=== PATIENT | female | born 1975 | race Caucasian/White ===

== ENCOUNTER 2016-11-08 16:14 | Emergency (ER) | payer OTHER ==
[2016-11-08 16:22] VITALS: TEMP 98.1; BMI 22.2
[2016-11-08] MEDS ORDERED: LORAZEPAM CARPU-JECT 2 MG/ML DISP.SYRIN IVPUSH ONE (16:41)
--- NOTE | 2016-11-08 16:41 | PDOC ---
*Physical Exam - Vital Signs Last Vital Signs Temp Pulse Resp BP Pulse Ox 98.1 F 135 H 18 131/57 100 11/08/16 16:18 11/08/16 16:18 11/08/16 16:18 11/08/16 16:18 11/08/16 16:18 Heart Score/ECG Review #1 ECG reviewed & interpreted by me at: 16:25 11/08/16 16:40 NSR 131, no std/yee, normal axis, normal intervals, TW flat V3, QTC 472 msec ED Treatment Course - LABORATORY CBC & Chemistry Diagram: 11/08/16 16:55 11/08/16 16:55 Medical Decision Making - Medical Decision Making 11/08/16 16:41 Pt seen by the Advanced Practice Provider under my direct supervision Ancillary studies reviewed I agree with plan as outlined by the Advanced Practice Provider OMAIRA Hamilton *DC/Admit/Observation/Transfer Diagnosis at time of Disposition: Anxiety - Discharge Dispostion Disposition: HOME Condition at time of disposition: Improved - Referrals Referrals: Nehemias Drew MD [Primary Care Provider] - - Patient Instructions Additional Instructions: Return for worsening of symptoms
[2016-11-08] MEDS ORDERED: SODIUM CHLORIDE 1,000 ML IV STA (16:42)
[2016-11-08] MEDS ORDERED: LORAZEPAM CARPU-JECT 2 MG/ML DISP.SYRIN ONE (16:48)
[2016-11-08 17:16] LABS: BASOPHIL 1.3 % (0-2.0); MCH 20.8 pg (25.7-33.7); MCHC 30.6 g/dl (32.0-36.0); MEAN CELL VOLUME 67.9 fl (80-96); MEAN PLT VOLUME 7.7 fl (7.5-11.1); NEUTROPHILS 74.2 % (42.8-82.8); PLATELET COUNT 473 K/MM3 (134-434); RDW 17.4 % (11.6-15.6); WHITE BLOOD COUNT 8.1 K/mm3 (4.0-10.0)
--- NOTE | 2016-11-08 18:00 | PDOC ---
History of Present Illness - General Chief Complaint: Palpitations Stated Complaint: HR 135 PALPITATIONS/LIGHTHEADED Time Seen by Provider: 11/08/16 16:31 History Source: Patient - History of Present Illness Associated Symptoms: denies: chest pain, diaphoresis, fever/chills, headaches, nausea/vomiting, shortness of breath, syncope, weakness Past History - Past Medical History Allergies/Adverse Reactions: Allergies Allergy/AdvReac Type Severity Reaction Status Date / Time No Known Allergies Allergy Verified 11/08/16 16:17 Other medical history: NONE - Psycho/Social/Smoking Cessation Hx Anxiety: No Suicidal Ideation: No Smoking History: Never smoked Have you smoked in the past 12 months: No Information on smoking cessation initiated: No Hx Alcohol Use: No Drug/Substance Use Hx: No Substance Use Type: None Review of Systems - Review of Systems Respiratory: No: Shortness of Breath Cardiac (ROS): Yes: Palpitations. No: Chest Pain ABD/GI: No: Nausea, Vomiting *Physical Exam - Vital Signs Last Vital Signs Temp Pulse Resp BP Pulse Ox 98.1 F 135 H 18 131/57 100 11/08/16 16:18 11/08/16 16:18 11/08/16 16:18 11/08/16 16:18 11/08/16 16:18 - Physical Exam Comments: 11/08/16 18:01 anxious appearing General Appearance: Yes: Appropriately Dressed HEENT: positive: Normal Voice Neck: positive: Supple Respiratory/Chest: positive: Lungs Clear, Normal Breath Sounds. negative: Respiratory Distress Cardiovascular: positive: S1, S2, Tachycardia Gastrointestinal/Abdominal: positive: Soft. negative: Tender Integumentary: positive: Dry, Warm Neurologic: positive: Fully Oriented, Alert, Normal Mood/Affect ED Treatment Course - LABORATORY CBC & Chemistry Diagram: 11/08/16 16:55 11/08/16 16:55 - ADDITIONAL ORDERS Additional order review: 11/08/16 16:55 RBC 4.91 MCV 67.9 L MCHC 30.6 L RDW 17.4 H MPV 7.7 Neutrophils % 74.2 Lymphocytes % 18.0 Monocytes % 6.5 Eosinophils % 0.0 Basophils % 1.3 - Medications Given in the ED: ED Medications Discontinued Medications Generic Name Dose Route Start Last Admin Trade Name Freq PRN Reason Stop Dose Admin Sodium Chloride 1,000 mls @ 1,000 mls/hr 11/08/16 16:42 11/08/16 16:58 Normal Saline - IV 11/08/16 17:41 1,000 mls/hr ASDIR STA Administration Lorazepam 1 mg 11/08/16 16:41 11/08/16 16:57 Ativan Injection - IVPUSH 11/08/16 16:42 1 mg ONCE ONE Administration Medical Decision Making - Medical Decision Making 11/08/16 17:49 41 yo F, ?psych hx (pt denies but has multiple psych encounters on records- unable to see documents in [email or web address]), here w/ anxiety and palpitations that started this am. Pt states she suffers from insomnia and instead of filling rx for ambien which she was given by her doctor, she ingested 3, 30cc caps of nyquil last night. Thinks meds is causing her symptoms. Adamently denies trying to hurt herself. States she made a mistake and took more than she was supposed to. Denies SI/HI in the past. see exam Anxiety/palpitations 2/2 reported accidental OD of nyquil last night Tachy to 135 in ED and appears anxious -ativan -IVF -labs -reassess 11/08/16 18:00 11/08/16 19:00 HR 104 on rpt. Patient reports feeling significantly better. Labs within normal limits. Stable for discharge at this time 11/08/16 19:01 *DC/Admit/Observation/Transfer Diagnosis at time of Disposition: Anxiety - Discharge Dispostion Disposition: HOME Condition at time of disposition: Improved - Referrals Referrals: Nehemias Drew MD [Primary Care Provider] - - Patient Instructions Additional Instructions: Return for worsening of symptoms
[2016-11-08 18:06] LABS: ALBUMIN 3.8 g/dl (3.4-5.0); ANION GAP 6 (8-16); BILIRUBIN,TOTAL 0.4 mg/dL (0.2-1.0); CALCIUM 8.2 mg/dL (8.5-10.1); CO2 25 mmol/L (21-32); CREATININE 1.1 mg/dL (0.55-1.02); GLUCOSE,RANDOM 95 mg/dL (74-106); SGOT/AST 8 U/L (15-37); SGPT/ALT 18 U/L (12-78); TOT PROT 7.4 g/dl (6.4-8.2)
[2016-11-08 18:09] LABS: ALK PHOS 50 U/L (45-117); TROPONIN I < 0.02 ng/ml (0.00-0.05)
[2016-11-08 19:01] LABS: HYPOCHROMIA 3+; PLATELET ESTIMATE INCREASED (NORMAL)
[2016-11-08 19:02] LABS: MICROCYTOSIS 1+
[2016-11-08 19:21] VITALS: BP 121/76; PULSE 102
--- NOTE | 2016-11-09 16:23 | EKG ---
Test Reason : Blood Pressure : / mmHG Vent. Rate : 131 BPM Atrial Rate : 131 BPM P-R Int : 126 ms QRS Dur : 062 ms QT Int : 320 ms P-R-T Axes : 055 056 028 degrees QTc Int : 472 ms SINUS TACHYCARDIA NONSPECIFIC ST ABNORMALITY ABNORMAL ECG WHEN COMPARED WITH ECG OF 18-DEC-1999 13:19, NO SIGNIFICANT CHANGE WAS FOUND Confirmed by DAVID FERNANDEZ MD ([id number]) on 11/09/2016 4:22:31 PM Referred By: Confirmed By:DAVID FERNANDEZ MD
== END 2016-11-08 19:21 | disposition home or self-care (01) ==
LOC: JER 16:14
PROC: 3E0337Z Introduction of Electrolytic and Water Balance Substance into Peripheral Vein, Percutaneous Approach (ICD-10-PCS; principal; 2016-11-08)
PROC: 3E033NZ Introduction of Analgesics, Hypnotics, Sedatives into Peripheral Vein, Percutaneous Approach (ICD-10-PCS; 2016-11-08)
DX: F41.9 Anxiety disorder, unspecified (principal)
CPT/HCPCS: 36415; 80053; 80307; 82009; 82550; 84443; 84484; 84703; 85025; 93005; 93010; 96361; 96374; 99284-25

== ENCOUNTER 2021-03-17 16:00 | Emergency (ER) | payer OTHER ==
[2021-03-17 16:30] VITALS: TEMP 98.7; BMI 27.8
[2021-03-17] MEDS ORDERED: LIDOCAINE 1%/EPI 1:100000 (20 ML MULTI DOSE VIAL) ONE (16:47)
[2021-03-17] MEDS ORDERED: CLINDAMYCIN HCL 300 MG CAPSULE PO ONE (17:07)
[2021-03-17] MEDS ORDERED: IBUPROFEN 400 MG TABLET (FP) PO ONE ×2 (17:07→17:12)
[2021-03-17] MEDS ORDERED: CLINDAMYCIN HCL 150 MG CAPSULE (FP) ONE (17:12)
[2021-03-17 17:19] VITALS: BP 130/87; PULSE 96
== END 2021-03-17 17:19 | disposition home or self-care (01) ==
LOC: JERFT 16:00 → JER 16:00 → JERFT 17:19
PROC: 0H98XZZ Drainage of Buttock Skin, External Approach (ICD-10-PCS; principal; 2021-03-17)
DX: L02.31 Cutaneous abscess of buttock (principal)
CPT/HCPCS: 87070; 87205; 99284-25

== ENCOUNTER 2021-03-20 15:14 | Emergency (ER) | payer OTHER ==
[2021-03-20 15:18] VITALS: BP 128/79; PULSE 101; TEMP 98.1; BMI 27.8
== END 2021-03-20 15:58 | disposition home or self-care (01) ==
LOC: JERFT 15:14
DX: Z48.00 Encounter for change or removal of nonsurgical wound dressing (principal)
CPT/HCPCS: 99281-25

== ENCOUNTER 2021-04-13 17:40 | Emergency (ER) | payer OTHER ==
[2021-04-13 17:47] VITALS: BP 113/73; PULSE 100; TEMP 98.2; BMI 27.2
== END 2021-04-13 20:57 | disposition home or self-care (01) ==
LOC: JERFT 17:40
DX: L02.31 Cutaneous abscess of buttock (principal)
CPT/HCPCS: 87070; 87076; 87186; 87205; 99282-25

== ENCOUNTER 2021-08-30 13:20 | Emergency (ER) | payer OTHER ==
[2021-08-30 13:40] VITALS: BP 141/94; PULSE 96; TEMP 97.9; BMI 26.2
== END 2021-08-30 15:15 | disposition home or self-care (01) ==
LOC: JER 13:20
DX: R05.1 Acute cough (principal); R09.81 Nasal congestion; J06.9 Acute upper respiratory infection, unspecified; Z11.52 Encounter for screening for COVID-19
CPT/HCPCS: 71046-TC-FY; 99284-25; C9803; U0003; U0005

== ENCOUNTER 2022-07-03 17:07 | Observation (INO) | payer OTHER ==
[2022-07-03] MEDS ORDERED: diazePAM CARPU-JECT 10 MG/2 ML DISP.SYRIN IVPUSH ONE ×3 (18:30→20:13)
[2022-07-03] MEDS ORDERED: THIAMINE HCL 200 MG/2 ML VIAL IVPB ONE (18:45)
[2022-07-03] MEDS ORDERED: SODIUM CHLORIDE 0.9% 500 ML INFUS.BAG IV ONE (18:45)
[2022-07-03] MEDS ORDERED: diazePAM CARPU-JECT 10 MG/2 ML DISP.SYRIN ONE ×3 (18:58→20:21)
[2022-07-03 19:10] LABS: BASO % 1.3 % (0-2.0); EOS % 0.1 % (0-4.5); HEMATOCRIT 41.9 % (32.4-45.2); HEMOGLOBIN 14.3 GM/dL (10.7-15.3); LYMPH % 12.5 % (8-40); MCH 27.1 pg (25.7-33.7); MCHC 34.1 g/dl (32.0-36.0); MEAN CELL VOLUME 79.5 fl (80-96); MEAN PLT VOLUME 7.7 fl (7.5-11.1); MONO % 6.2 % (3.8-10.2); NEUT % 79.9 % (42.8-82.8); PLATELET COUNT 558 10^3/uL (134-434); RBC 5.27 M/mm3 (3.60-5.2); RDW 17.1 % (11.6-15.6); WHITE BLOOD COUNT 15.5 K/mm3 (4.0-10.0)
[2022-07-03] MEDS ORDERED: THIAMINE HCL 200 MG/2 ML VIAL ONE (19:21)
[2022-07-03 19:36] LABS: CALCIUM 10.7 mg/dL (8.5-10.1)
[2022-07-03 19:37] LABS: BLOOD UREA NITROGEN 4.2 mg/dL (7-18); MAGNESIUM 1.4 mg/dL (1.8-2.4)
[2022-07-03 19:42] LABS: BILIRUBIN,TOTAL 0.9 mg/dL (0.2-1)
[2022-07-03 20:44] LABS: EPI CELLS 14 /uL (0-25.1); HYALINE CASTS 1 /uL (0-3.1); PH,URINE 6.5 (5.0-8.0); URINE APPEARANCE CLEAR; URINE BACTERIA 239 /uL (0-1359); URINE BILIRUBIN NEGATIVE (NEGATIVE); URINE COLOR YELLOW; URINE GLUCOSE (UA) NEGATIVE (NEGATIVE); URINE KETONE NEGATIVE (NEGATIVE); URINE LEUK ESTERASE TRACE (NEGATIVE); URINE NITRITE NEGATIVE (NEGATIVE); URINE PROTEIN NEGATIVE (NEGATIVE); URINE RBC 28 /uL (0-23.9); URINE UROBILINOGEN 0.2 mg/dL (0.2-1.0); URINE WBC 13 /uL (0-25.8)
[2022-07-03 22:45] VITALS: BMI 27.8
[2022-07-03] MEDS ORDERED: LORazepam 2 MG/ML SDV VIAL IVPB PRN (23:41)
[2022-07-04] MEDS: DEXTROSE 5%-0.45% SALINE 1,000 ML IV SCH ×2 (00:22→17:08)
[2022-07-04] MEDS ORDERED: MELATONIN 1 MG TABLET PO ONE (03:11)
[2022-07-04 06:58] LABS: BASO % 0.9 % (0-2.0); EOS % 1.1 % (0-4.5); MCH 26.8 pg (25.7-33.7); MCHC 33.3 g/dl (32.0-36.0); MEAN CELL VOLUME 80.5 fl (80-96); MEAN PLT VOLUME 8.1 fl (7.5-11.1); MONO % 9.2 % (3.8-10.2); NEUT % 62.8 % (42.8-82.8); PLATELET COUNT 427 10^3/uL (134-434); RBC 4.85 M/mm3 (3.60-5.2); RDW 17.2 % (11.6-15.6); WHITE BLOOD COUNT 8.2 K/mm3 (4.0-10.0)
[2022-07-04 07:16] LABS: CHLORIDE 104 mmol/L (98-107); SODIUM 140 mmol/L (136-145)
[2022-07-04 07:23] LABS: ANION GAP 8 MMOL/L (8-16); CO2 27 mmol/L (21-32); GLUCOSE,RANDOM 101 mg/dL (74-106)
[2022-07-04 07:26] LABS: CREATININE 0.8 mg/dL (0.55-1.3); SGOT/AST 33 U/L (15-37); SGPT/ALT 33 U/L (13-61)
[2022-07-04 07:28] LABS: BILIRUBIN,TOTAL 0.9 mg/dL (0.2-1)
[2022-07-04 08:30] LABS: ALK PHOS 95 U/L (45-117); BLOOD UREA NITROGEN 2.7 mg/dL (7-18); CALCIUM 8.9 mg/dL (8.5-10.1); TOT PROT 6.9 g/dl (6.4-8.2)
[2022-07-04] MEDS ORDERED: ONDANSETRON 4 MG/2 ML VIAL IVPUSH ONE (09:00)
[2022-07-04] MEDS ORDERED: ONDANSETRON 4 MG/2 ML VIAL ONE (09:19)
[2022-07-04] MEDS: PANTOPRAZOLE 40 MG TABLET PO SCH (10:00)
[2022-07-04] MEDS: FOLIC ACID 1 MG TABLET (FP) PO SCH (10:00)
[2022-07-04] MEDS: THIAMINE HCL 100 MG TABLET (FP) PO SCH (10:00)
[2022-07-04] MEDS: HEPARIN NA (PORCINE) 5,000 UNITS/ML 1ML VIAL SQ SCH ×2 (10:00→22:06)
[2022-07-04] MEDS ORDERED: chlordiazePOXIDE HCL 25 MG CAPSULE PO PRN (10:41)
[2022-07-04] MEDS ORDERED: LOPERAMIDE HCL 2 MG CAPSULE PO PRN (10:41)
[2022-07-04] MEDS ORDERED: DICYCLOMINE HCL 10 MG CAPSULE PO PRN (10:41)
[2022-07-04] MEDS ORDERED: ONDANSETRON *ODT* 4 MG TABLET SL PRN (10:41)
[2022-07-04] MEDS ORDERED: BENZOCAINE/MENTHOL (CHLORASEPTIC ) LOZENGE MM PRN (10:41)
[2022-07-04] MEDS ORDERED: METHOCARBAMOL 500 MG TABLET PO PRN (10:41)
[2022-07-04] MEDS ORDERED: MAGNESIUM CITRATE 300 ML BOTTLE PO PRN (10:41)
[2022-07-04] MEDS ORDERED: IBUPROFEN 400 MG TABLET (FP) PO PRN (10:41)
[2022-07-04] MEDS ORDERED: MAGNESIUM HYDROX 2400MG/30ML ORAL SUSPENSION 30 ML CUP PO PRN (10:41)
[2022-07-04] MEDS ORDERED: BISMUTH SUBSALICYLATE 524 MG/30 ML PO PRN (10:41)
[2022-07-04 10:56] LABS: MAGNESIUM 1.5 mg/dL (1.8-2.4)
[2022-07-04] MEDS ORDERED: MAGNESIUM SULFATE IN WATER 4 GM/50 ML BAG IVPB ONE ×2 (11:00→12:00)
[2022-07-04] MEDS: chlordiazePOXIDE HCL 25 MG CAPSULE PO SCH ×3 (11:28→22:06)
[2022-07-04] MEDS ORDERED: POTASSIUM CHLORIDE TABS 20 MEQ TABLET.ER (FP) PO ONE (11:30)
[2022-07-04] MEDS: MAG HYDROX/AL HYDROX/SIMETH 30 ML UNIT-DOSE CUP PO PRN (11:32)
[2022-07-04 11:57] LABS: CHOLESTEROL 160 mg/dL (50-200)
[2022-07-04 11:58] LABS: LDL CHOLESTEROL (ONLY SJRH) 82 mg/dL (5-100)
[2022-07-04 11:59] LABS: TRIGLYCERIDES 202 mg/dL (0-150)
[2022-07-04 12:02] LABS: HDL CHOLESTEROL 59 mg/dL (40-60)
[2022-07-04] MEDS: hydrOXYzine PAMOATE 25 MG CAPSULE (FP) PO SCH ×3 (14:00→23:27)
[2022-07-04 15:42] LABS: COCAINE, UR NEGATIVE (NEGATIVE); OPIATES, URI NEGATIVE (NEGATIVE)
[2022-07-04 15:43] LABS: URINE BARBITURATES NEGATIVE (NEGATIVE)
[2022-07-04 15:48] LABS: PHENCYCLIDINE,URINE NEGATIVE (NEGATIVE)
[2022-07-04 15:49] LABS: METHADONE, UR NEGATIVE (NEGATIVE)
[2022-07-04 15:50] LABS: URINE AMPHETAMINES NEGATIVE (NEGATIVE); URINE BENZODIAZEPINES POSITIVE (NEGATIVE)
[2022-07-04] MEDS: PRENATAL VITAMINS W/ FOLIC ACID TABLET (FP) PO SCH (18:07)
[2022-07-04] MEDS: MELATONIN 5 MG TABLETS PO SCH (22:06)
[2022-07-05] MEDS: DEXTROSE 5%-0.45% SALINE 1,000 ML IV SCH ×2 (00:45→06:43)
[2022-07-05] MEDS: chlordiazePOXIDE HCL 25 MG CAPSULE PO SCH ×4 (05:55→22:03)
[2022-07-05] MEDS: hydrOXYzine PAMOATE 25 MG CAPSULE (FP) PO SCH ×5 (06:33→22:03)
[2022-07-05 07:12] LABS: HEMATOCRIT 38.5 % (32.4-45.2); HEMOGLOBIN 12.5 GM/dL (10.7-15.3); MCH 26.6 pg (25.7-33.7); MCHC 32.6 g/dl (32.0-36.0); MEAN CELL VOLUME 81.5 fl (80-96); MEAN PLT VOLUME 8.5 fl (7.5-11.1); PLATELET COUNT 331 10^3/uL (134-434); RBC 4.72 M/mm3 (3.60-5.2); RDW 16.9 % (11.6-15.6); WHITE BLOOD COUNT 6.8 K/mm3 (4.0-10.0)
[2022-07-05 07:29] LABS: CALCIUM 8.1 mg/dL (8.5-10.1)
[2022-07-05 07:30] LABS: ALBUMIN 2.6 g/dl (3.4-5.0); BLOOD UREA NITROGEN 8.6 mg/dL (7-18)
[2022-07-05 07:33] LABS: CREATININE 0.8 mg/dL (0.55-1.3)
[2022-07-05 07:34] LABS: BILIRUBIN,TOTAL 0.4 mg/dL (0.2-1); TOT PROT 6.2 g/dl (6.4-8.2)
[2022-07-05] MEDS: PRENATAL VITAMINS W/ FOLIC ACID TABLET (FP) PO SCH (10:22)
[2022-07-05] MEDS: FOLIC ACID 1 MG TABLET (FP) PO SCH (10:22)
[2022-07-05] MEDS: HEPARIN NA (PORCINE) 5,000 UNITS/ML 1ML VIAL SQ SCH ×2 (10:22→22:01)
[2022-07-05] MEDS: THIAMINE HCL 100 MG TABLET (FP) PO SCH (10:23)
[2022-07-05] MEDS: PANTOPRAZOLE 40 MG TABLET PO SCH (10:23)
[2022-07-05] MEDS ORDERED: ACETAMINOPHEN INJECTION 100 ML IVPB ONE (11:47)
[2022-07-05] MEDS: MELATONIN 5 MG TABLETS PO SCH (22:02)
[2022-07-06] MEDS: DEXTROSE 5%-0.45% SALINE 1,000 ML IV SCH ×2 (00:45→05:46)
[2022-07-06] MEDS: IBUPROFEN 600 MG TABLET (FP) PO PRN (03:12)
[2022-07-06] MEDS: chlordiazePOXIDE HCL 25 MG CAPSULE PO SCH ×4 (05:26→23:37)
[2022-07-06] MEDS: hydrOXYzine PAMOATE 25 MG CAPSULE (FP) PO SCH ×5 (05:26→21:25)
[2022-07-06] MEDS: MAG HYDROX/AL HYDROX/SIMETH 30 ML UNIT-DOSE CUP PO PRN (09:36)
[2022-07-06] MEDS: PANTOPRAZOLE 40 MG TABLET PO SCH (09:36)
[2022-07-06] MEDS: THIAMINE HCL 100 MG TABLET (FP) PO SCH (09:36)
[2022-07-06] MEDS: FOLIC ACID 1 MG TABLET (FP) PO SCH (09:37)
[2022-07-06] MEDS: HEPARIN NA (PORCINE) 5,000 UNITS/ML 1ML VIAL SQ SCH ×2 (09:37→21:25)
[2022-07-06] MEDS: PRENATAL VITAMINS W/ FOLIC ACID TABLET (FP) PO SCH (09:40)
[2022-07-06] MEDS: MELATONIN 5 MG TABLETS PO SCH (21:25)
[2022-07-07] MEDS ORDERED: chlordiazePOXIDE HCL 10 MG CAPSULE PO PRN
[2022-07-07] MEDS: chlordiazePOXIDE HCL 10 MG CAPSULE PO SCH ×4 (05:28→23:17)
[2022-07-07] MEDS: hydrOXYzine PAMOATE 25 MG CAPSULE (FP) PO SCH ×5 (05:31→21:17)
[2022-07-07] MEDS: DEXTROSE 5%-0.45% SALINE 1,000 ML IV SCH ×2 (07:35→23:17)
[2022-07-07] MEDS: HEPARIN NA (PORCINE) 5,000 UNITS/ML 1ML VIAL SQ SCH ×2 (09:17→21:16)
[2022-07-07] MEDS: FOLIC ACID 1 MG TABLET (FP) PO SCH (09:17)
[2022-07-07] MEDS: THIAMINE HCL 100 MG TABLET (FP) PO SCH (09:18)
[2022-07-07] MEDS: PANTOPRAZOLE 40 MG TABLET PO SCH (09:18)
[2022-07-07] MEDS: PRENATAL VITAMINS W/ FOLIC ACID TABLET (FP) PO SCH (09:20)
[2022-07-07] MEDS: MELATONIN 5 MG TABLETS PO SCH (21:16)
[2022-07-08] MEDS: chlordiazePOXIDE HCL 10 MG CAPSULE PO SCH ×2 (05:36→17:51)
[2022-07-08] MEDS: hydrOXYzine PAMOATE 25 MG CAPSULE (FP) PO SCH ×5 (05:37→21:37)
[2022-07-08] MEDS: HEPARIN NA (PORCINE) 5,000 UNITS/ML 1ML VIAL SQ SCH ×2 (09:28→21:36)
[2022-07-08] MEDS: PANTOPRAZOLE 40 MG TABLET PO SCH (09:28)
[2022-07-08] MEDS: THIAMINE HCL 100 MG TABLET (FP) PO SCH (09:28)
[2022-07-08] MEDS: PRENATAL VITAMINS W/ FOLIC ACID TABLET (FP) PO SCH (09:29)
[2022-07-08] MEDS: FOLIC ACID 1 MG TABLET (FP) PO SCH (09:29)
[2022-07-08] MEDS ORDERED: SENNOSIDES 8.6MG TABLET (FP) PO ONE (11:30)
[2022-07-08] MEDS ORDERED: POLYETHYLENE GLYCOL (HEALTHYLAX) 3350 17 GM PACKET PO ONE (11:30)
[2022-07-08] MEDS: PHENYLEPH/MINERAL OIL/PETROLAT 28 GM OINTMENT RC SCH ×2 (14:50→21:36)
[2022-07-08] MEDS: MELATONIN 5 MG TABLETS PO SCH (21:36)
[2022-07-08] MEDS: DEXTROSE 5%-0.45% SALINE 1,000 ML IV SCH (23:50)
[2022-07-09] MEDS ORDERED: chlordiazePOXIDE HCL 10 MG CAPSULE PO ONE (05:00)
[2022-07-09] MEDS: hydrOXYzine PAMOATE 25 MG CAPSULE (FP) PO SCH ×3 (05:12→15:43)
[2022-07-09 06:32] VITALS: RESP 20; TEMP 98.5
[2022-07-09] MEDS: FOLIC ACID 1 MG TABLET (FP) PO SCH (09:30)
[2022-07-09] MEDS: HEPARIN NA (PORCINE) 5,000 UNITS/ML 1ML VIAL SQ SCH (09:30)
[2022-07-09] MEDS: PRENATAL VITAMINS W/ FOLIC ACID TABLET (FP) PO SCH (09:31)
[2022-07-09] MEDS: PANTOPRAZOLE 40 MG TABLET PO SCH (09:31)
[2022-07-09] MEDS: THIAMINE HCL 100 MG TABLET (FP) PO SCH (09:36)
[2022-07-09] MEDS: PHENYLEPH/MINERAL OIL/PETROLAT 28 GM OINTMENT RC SCH (09:38)
[2022-07-09] MEDS: IBUPROFEN 600 MG TABLET (FP) PO PRN (15:23)
[2022-07-09 15:54] VITALS: BP 124/102; PULSE 80
== END 2022-07-09 17:10 | disposition home or self-care (01) ==
LOC: JER 17:07 → JERBED 19:54 → UNDOADMOB 19:54 → J2W 22:20 → JERBED 22:20 → INTOOBSV 23:46 → OBSVTOIN 23:46 → JERBED 07-04 10:54 → J2W 07-04 10:54
PROVIDERS: ADMIT Internal Medicine; ATTEND Internal Medicine
PROC: 3E033GC Introduction of Other Therapeutic Substance into Peripheral Vein, Percutaneous Approach (ICD-10-PCS; principal; 2022-07-04)
PROC: 3E033NZ Introduction of Analgesics, Hypnotics, Sedatives into Peripheral Vein, Percutaneous Approach (ICD-10-PCS; 2022-07-04)
PROC: 3E0337Z Introduction of Electrolytic and Water Balance Substance into Peripheral Vein, Percutaneous Approach (ICD-10-PCS; 2022-07-04)
DX: F10.220 Alcohol dependence with intoxication, uncomplicated (principal); F10.939 Alcohol use, unspecified with withdrawal, unspecified; R00.0 Tachycardia, unspecified; F41.9 Anxiety disorder, unspecified; R91.1 Solitary pulmonary nodule; G47.00 Insomnia, unspecified; R06.83 Snoring
CPT/HCPCS: 36415; 71045-TC-FY; 80053; 80061; 80307; 81003; 82607; 83036; 83690; 83735; 84443; 84484; 84703; 85025; 85027; 86780; 93005; 93010; 93306-TC; 96365; 96372; 96375; 96376; 97116-GP; 97162-GP; 99285-25; C9803-CS; G0378; J1644; Q0162; U0003; U0005

== ENCOUNTER 2023-06-13 14:09 | Day surgery (SDC) | payer OTHER ==
[2023-06-13] MEDS ORDERED: IRON SUCROSE COMPLEX 200 MG in SODIUM CHLORIDE 100 ML IVPB ONE (14:45)
[2023-06-13 16:47] VITALS: BP 110/60; PULSE 80; RESP 18; TEMP 98.3
== END 2023-06-13 15:55 | disposition home or self-care (01) ==
LOC: FINFUSION 14:09 → FM/S 14:13 → FINFUSION 15:55
PROVIDERS: ATTEND Family Medicine
PROC: 3E033GC Introduction of Other Therapeutic Substance into Peripheral Vein, Percutaneous Approach (ICD-10-PCS; principal; 2023-06-13)
DX: D50.9 Iron deficiency anemia, unspecified (principal)
CPT/HCPCS: 96365

== ENCOUNTER 2023-06-21 19:43 | Day surgery (SDC) | payer OTHER ==
[2023-06-21] MEDS ORDERED: IRON SUCROSE INJECTION 200 MG in SODIUM CHLORIDE 100 ML IVPB ONE (20:00)
[2023-06-21 20:24] VITALS: RESP 17; TEMP 98.3
[2023-06-21 21:34] VITALS: BP 133/82; PULSE 76
== END 2023-06-21 21:37 | disposition home or self-care (01) ==
LOC: FINFUSION 19:43 → FM/S 19:44 → FINFUSION 21:37
PROVIDERS: ATTEND Family Medicine
PROC: 3E033GC Introduction of Other Therapeutic Substance into Peripheral Vein, Percutaneous Approach (ICD-10-PCS; principal; 2023-06-21)
DX: D50.9 Iron deficiency anemia, unspecified (principal)
CPT/HCPCS: 96365; J1756

== ENCOUNTER 2023-06-27 17:12 | Day surgery (SDC) | payer OTHER ==
[2023-06-27] MEDS ORDERED: IRON SUCROSE INJECTION 200 MG in SODIUM CHLORIDE 100 ML IVPB ONE (17:45)
[2023-06-27 19:27] VITALS: RESP 18; TEMP 97.9
[2023-06-27 21:04] VITALS: BP 128/70; PULSE 75
== END 2023-06-27 20:50 | disposition home or self-care (01) ==
LOC: FM/S 17:12 → FINFUSION 17:12
PROVIDERS: ATTEND Family Medicine
PROC: 3E033GC Introduction of Other Therapeutic Substance into Peripheral Vein, Percutaneous Approach (ICD-10-PCS; principal; 2023-06-27)
DX: D50.9 Iron deficiency anemia, unspecified (principal)
CPT/HCPCS: 96365; J1756

== ENCOUNTER 2023-11-26 16:44 | Emergency (ER) | payer OTHER ==
[2023-11-26 16:56] VITALS: BP 137/92; PULSE 85; RESP 18; TEMP 98.4; BMI 27.0
[2023-11-26] MEDS ORDERED: AMOX TR/POT CLAV 875MG/125MG TABLETS (FP) PO ONE (18:35)
[2023-11-26] MEDS ORDERED: ACETAMINOPHEN 500 MG TABLET (FP) PO ONE (18:35)
[2023-11-26] MEDS ORDERED: ACETAMINOPHEN 500 MG TABLET (FP) ONE (18:40)
[2023-11-26] MEDS ORDERED: AMOX TR/POT CLAV 875MG/125MG TABLETS (FP) ONE (18:40)
== END 2023-11-26 18:50 | disposition home or self-care (01) ==
LOC: JERFT 16:44
DX: R09.81 Nasal congestion (principal); J02.9 Acute pharyngitis, unspecified; R05.9 Cough, unspecified; J01.80 Other acute sinusitis; Z20.822 Contact with and (suspected) exposure to COVID-19
CPT/HCPCS: 0241U-QW; 99283-25

== ENCOUNTER 2024-02-16 21:55 | Emergency (ER) | payer OTHER ==
[2024-02-16 22:04] VITALS: BP 114/74; PULSE 112; RESP 18; TEMP 97.8; BMI 26.2
[2024-02-16] MEDS ORDERED: ONDANSETRON 4 MG/2 ML VIAL ONE (23:11)
[2024-02-16 23:32] LABS: BASO % 1.5 % (0-2.0); EOS % 1.5 % (0-4.5); HEMATOCRIT 43.9 % (32.4-45.2); HEMOGLOBIN 14.6 GM/dL (10.7-15.3); LYMPH % 40.8 % (8-40); MCH 26.7 pg (25.7-33.7); MCHC 33.2 g/dl (32.0-36.0); MEAN CELL VOLUME 80.3 fl (80-96); MEAN PLT VOLUME 7.5 fl (7.5-11.1); MONO % 6.6 % (3.8-10.2); NEUT % 49.6 % (42.8-82.8); PLATELET COUNT 560 10^3/uL (134-434); RBC 5.46 M/mm3 (3.60-5.2); RDW 17.4 % (11.6-15.6); WHITE BLOOD COUNT 9.8 K/mm3 (4.0-10.0)
[2024-02-16] MEDS: ONDANSETRON 4 MG/2 ML VIAL IVPUSH ONE (23:36)
[2024-02-16] MEDS: SODIUM CHLORIDE 0.9% 500 ML INFUS.BAG IV ONE (23:36)
[2024-02-17 00:08] LABS: ALBUMIN 3.5 g/dl (3.4-5.0); ALK PHOS 99 U/L (45-117); ANION GAP 0 mmol/L (4-13); BILIRUBIN,TOTAL 0.2 mg/dL (0.2-1); BLOOD UREA NITROGEN 10.7 mg/dL (7-18); CALCIUM 8.7 mg/dL (8.5-10.1); CHLORIDE 112 mmol/L (98-107); CO2 25 mmol/L (21-32); CREATININE 0.8 mg/dL (0.55-1.3); GLUCOSE,RANDOM 105 mg/dL (74-106); POTASSIUM > 10.0 mmol/L (3.5-5.1); SGOT/AST 62 U/L (15-37); SGPT/ALT 39 U/L (13-61); SODIUM 137 mmol/L (136-145); TOT PROT 8.8 g/dl (6.4-8.2)
[2024-02-17 00:54] LABS: POTASSIUM 4.2 mmol/L (3.5-5.1)
[2024-02-17 00:57] LABS: BLOOD UREA NITROGEN 9.4 mg/dL (7-18)
[2024-02-17] MEDS ORDERED: METOCLOPRAMIDE HCL INJECTION 10 MG/2 ML VIAL ONE (00:58)
[2024-02-17] MEDS ORDERED: ACETAMINOPHEN INJECTION 100 ML IVPB ONE (00:59)
[2024-02-17 01:01] LABS: CREATININE 0.6 mg/dL (0.55-1.3)
[2024-02-17] MEDS: ACETAMINOPHEN 1000 MG/100 ML BAG IVPB ONE (01:22)
[2024-02-17] MEDS: METOCLOPRAMIDE HCL INJECTION 10 MG/2 ML VIAL IVPUSH ONE (01:22)
== END 2024-02-17 02:06 | disposition home or self-care (01) ==
LOC: JER 21:55
PROC: 3E033NZ Introduction of Analgesics, Hypnotics, Sedatives into Peripheral Vein, Percutaneous Approach (ICD-10-PCS; principal; 2024-02-17)
PROC: 3E033GC Introduction of Other Therapeutic Substance into Peripheral Vein, Percutaneous Approach (ICD-10-PCS; 2024-02-17)
PROC: 3E033GC Introduction of Other Therapeutic Substance into Peripheral Vein, Percutaneous Approach (ICD-10-PCS; 2024-02-17)
DX: F10.920 Alcohol use, unspecified with intoxication, uncomplicated (principal); Y90.8 Blood alcohol level of 240 mg/100 ml or more
CPT/HCPCS: 36415; 80048; 80053; 80307; 85025; 93005; 93010; 99284-25; J0131

== ENCOUNTER 2024-08-28 22:39 | Emergency (ER) | payer OTHER ==
[2024-08-28 22:46] VITALS: RESP 16; BMI 28.3
[2024-08-29] MEDS: SODIUM CHLORIDE 1,000 ML IV STA (00:19)
[2024-08-29 00:47] LABS: POTASSIUM 4.4 mmol/L (3.5-5.1)
[2024-08-29 00:49] LABS: ALBUMIN 3.7 g/dl (3.4-5.0); BLOOD UREA NITROGEN 8.8 mg/dL (7-18); CALCIUM 9.2 mg/dL (8.5-10.1); MAGNESIUM 1.8 mg/dL (1.8-2.4)
[2024-08-29 00:52] LABS: CREATININE 0.9 mg/dL (0.55-1.3)
[2024-08-29 00:54] LABS: BILIRUBIN,TOTAL 0.4 mg/dL (0.2-1); TOT PROT 7.7 g/dl (6.4-8.2)
[2024-08-29] MEDS ORDERED: ZOLPIDEM TARTRATE 5 MG TABLET ONE (01:17)
[2024-08-29 01:23] VITALS: BP 136/83; PULSE 83; TEMP 98
[2024-08-29] MEDS: ZOLPIDEM TARTRATE 5 MG TABLET PO ONE (01:25)
[2024-08-29 01:41] LABS: HIV INTERPRETATION NEGATIVE (NEGATIVE)
[2024-08-29 02:52] LABS: EPI CELLS 14 /uL (0-25.1); HYALINE CASTS 0 /uL (0-3.1); PH,URINE 6.5 (5.0-8.0); URINE APPEARANCE CLEAR; URINE BACTERIA 1760 /uL (0-1359); URINE BILIRUBIN NEGATIVE (NEGATIVE); URINE COLOR YELLOW; URINE GLUCOSE (UA) NEGATIVE (NEGATIVE); URINE KETONE NEGATIVE (NEGATIVE); URINE LEUK ESTERASE 2+ (NEGATIVE); URINE NITRITE NEGATIVE (NEGATIVE); URINE PROTEIN NEGATIVE (NEGATIVE); URINE RBC 15 /uL (0-23.9); URINE UROBILINOGEN 0.2 mg/dL (0.2-1.0); URINE WBC 134 /uL (0-25.8)
== END 2024-08-29 01:39 | disposition home or self-care (01) ==
LOC: JER 22:39
PROC: 3E033GC Introduction of Other Therapeutic Substance into Peripheral Vein, Percutaneous Approach (ICD-10-PCS; principal; 2024-08-29)
PROC: 3E0337Z Introduction of Electrolytic and Water Balance Substance into Peripheral Vein, Percutaneous Approach (ICD-10-PCS; 2024-08-29)
DX: F10.930 Alcohol use, unspecified with withdrawal, uncomplicated (principal); Y90.9 Presence of alcohol in blood, level not specified; R00.2 Palpitations; R19.7 Diarrhea, unspecified; R42 Dizziness and giddiness
CPT/HCPCS: 36415; 80053; 81003; 83735; 84484; 86803; 87389; 93005; 93010; 99284-25